=== PATIENT | female | born 1985 | race African-American/Black ===

== ENCOUNTER 2018-07-11 04:07 | Emergency (ER) | payer MEDICAID ==
[2018-07-11] MEDS ORDERED: ONDANSETRON 4 MG TAB.RAPDIS PO ONE (04:34)
[2018-07-11] MEDS ORDERED: METOCLOPRAMIDE HCL ORAL SOLN 10 MG/10 ML UDCUP PO ONE (06:26)
[2018-07-11] MEDS ORDERED: MAG HYDROX/AL HYDROX/SIMETH SUSP 30 ML UDCUP PO ONE (06:26)
[2018-07-11] MEDS ORDERED: LIDOCAINE 2% VISCOUS SOLN 20 ML UDCUP PO ONE (06:26)
--- NOTE | 2018-07-11 06:30 | ER Document Report ---
ED General - General Chief Complaint: Vomiting Stated Complaint: VOMITING Time Seen by Provider: 07/11/18 06:06 TRAVEL OUTSIDE OF THE [place] IN LAST 30 DAYS: No - HPI Notes: Patient is a 32-year-old female that presents to the emergency department for chief complaint of epigastric abdominal pain and vomiting. Patient reports acute onset of epigastric pain this morning. She states she has had multiple episodes of nonbloody emesis since waking up. She denies associated fevers, chills and diarrhea. She denies history of gastric ulcers or or GERD in the past. She does state last night she ate hot sausages. Patient has not taken any gsbe-[id number] medications for her symptoms. She states that she does get relief of the epigastric pain after vomiting. She states it is a burning sharp constant pain which has improved now since onset. She denies aggravating symptoms to her abdominal pain. Past Medical History: Asthma Past Surgical History: x3, tubal ligation Social History: Denies drugs alcohol and tobacco Family History: Reviewed and noncontributory for presenting illness Allergies: Reviewed, see documented allergy list. REVIEW OF SYSTEMS: CONSTITUTIONAL : No fever No chills No diaphoresis No recent illness EENT: No vision changes No congestion No sore throat CARDIOVASCULAR: No chest pain No palpitations RESPIRATORY: No shortness of breath No cough No difficulty breathing GASTROINTESTINAL: abdominal pain nausea vomiting No diarrhea GENITOURINARY: No dysuria No hematuria No difficulty urinating MUSCULOSKELETAL: No back pain No leg pain No arm pain SKIN: No rashes No lesions LYMPHATIC: No swollen, enlarged glands. NEUROLOGICAL: No lightheadedness No headache No weakness No paresthesias PSYCHIATRIC: No anxiety No depression PHYSICAL EXAMINATION: Vital signs reviewed, nursing noted reviewed. GENERAL: Well-appearing, obese and in no acute distress. HEAD: Atraumatic, normocephalic. EYES: Eyes appear normal, extraocular movements intact, sclera anicteric, conjunctiva are normal. ENT: nares patent, oropharynx clear without exudates. Moist mucous membranes. NECK: Normal range of motion, supple without lymphadenopathy LUNGS: Breath sounds clear to auscultation bilaterally and equal. No wheezes rales or rhonchi. HEART: Regular rate and rhythm without murmurs ABDOMEN: Soft, mild epigastric tenderness, normoactive bowel sounds. No rebound, guarding, or rigidity. No masses appreciated. EXTREMITIES: Nontender, good range of motion, no pitting or edema. NEUROLOGICAL: No focal neurological deficits. Moves all extremities spontaneously Motor and sensory grossly intact on exam. PSYCH: Normal mood, normal affect. SKIN: Warm, Dry, normal turgor, no rashes or lesions noted on exposed skin Past Medical History - Social History Smoking Status: Never Smoker Family History: Reviewed & Not Pertinent Physical Exam - Vital signs Vitals: Temp Pulse Resp BP Pulse Ox 98.2 F 83 18 142/89 H 100 07/11/18 04:14 07/11/18 04:14 07/11/18 04:14 07/11/18 04:14 07/11/18 04:14 Course - Re-evaluation Re-evalutation: 07/11/18 06:29 Vitals reviewed. Nursing notes reviewed. Patient does have some mild epigastric tenderness with no other peritoneal signs. She has a negative Morales sign and no right lower quadrant tenderness to suggest cholecystitis or acute appendicitis. She did have relief of her nausea after receiving Zofran in triage. Patient is otherwise well-appearing and afebrile. She will be symptomatically managed with omeprazole and Zofran. I did discuss dietary changes. She was referred to the [facility] for follow-up. She was counseled on return precautions. She is stable at discharge. - Vital Signs Vital signs: Temp Pulse Resp BP Pulse Ox 98.2 F 83 18 142/89 H 100 07/11/18 04:14 07/11/18 04:14 07/11/18 04:14 07/11/18 04:14 07/11/18 04:14 Discharge - Discharge Clinical Impression: Epigastric abdominal pain Condition: Stable Disposition: HOME, SELF-CARE Instructions: Abdominal Pain ([facility]), Gastritis ([facility]) Additional Instructions: Please return to the emergency department if you have any worsening, or concern of your symptoms. Please return to the emergency department if you develop chest pain, difficulty breathing, severe abdominal pain, or ongoing vomiting. Please follow-up with your primary care physician in 2-3 days and any other recommended physicians. If prescribed, take all medications as directed. If you have any questions or concerns do not hesitate to return the emergency department for evaluation. Avoid eating any foods that are fried, spicy, citrus's, caffeine, coffee, soda pop, chocolate or heavily seasoned Prescriptions: Omeprazole 40 mg PO DAILY #30 capsule. Ondansetron [Zofran Odt 4 mg Tablet] 1 tab PO Q4H PRN #15 tab.rapdis PRN Reason: For Nausea/Vomiting Referrals: [facility] [Provider Group] - Follow up in 3-5 days
[2018-07-11 07:24] VITALS: BP 139/86
== END 2018-07-11 07:24 | disposition home or self-care (01) ==
LOC: ER 04:07
DX: R10.13 Epigastric pain (principal); R11.10 Vomiting, unspecified
CPT/HCPCS: 99283; S0119; J3490 ×3